=== PATIENT | female | born 1950 | race Caucasian/White ===

== ENCOUNTER → 2017-09-15 | Outpatient (CLI) | payer MEDICARE, BC ==
[2017-09-15 13:27] LABS: HGB 13.3 gm/dL (11.4-16.0); Hypochromasia Slight; MCH 30.2 pg (25.0-35.0); MCHC 31.7 g/dL (31.0-37.0); MCV 95.1 fL (80.0-100.0); Mean Platelet Volume 7.4; Platelet Count 297 k/uL (150-450); RBC 4.41 m/uL (3.80-5.40); RDW 12.9 % (11.5-15.5); WBC 6.9 k/uL (3.8-10.6)
[2017-09-15 13:45] LABS: Prothrombin Time 9.6 sec (9.0-12.0)
[2017-09-15 13:47] LABS: ALT 22 U/L (9-52); AST 21 U/L (14-36); Albumin 3.9 g/dL (3.5-5.0); Alkaline Phosphatase 78 U/L (38-126); Anion Gap 10 mmol/L; Blood Urea Nitrogen 15 mg/dL (7-17); Calcium 9.6 mg/dL (8.4-10.2); Carbon Dioxide 28 mmol/L (22-30); Chloride 103 mmol/L (98-107); Glucose 123 mg/dL (74-99); Potassium 4.7 mmol/L (3.5-5.1); Sodium 141 mmol/L (137-145); Total Bilirubin 0.7 mg/dL (0.2-1.3); Total Protein 6.6 g/dL (6.3-8.2)
== END | disposition home or self-care (01) ==
LOC: LABPAT 12:16
PROVIDERS: ATTEND Orthopaedic Surgery
DX: Z01.818 Encounter for other preprocedural examination (principal); Z01.812 Encounter for preprocedural laboratory examination; Z79.01 Long term (current) use of anticoagulants
CPT/HCPCS: 36415; 80053; 85027; 85610; 85730; 87070; 93005

== ENCOUNTER 2017-09-26 06:27 | Inpatient (IN) | payer MEDICARE, BC ==
[2017-09-20 14:31] VITALS: BMI 38.0
[~2017-09-26 06:27] MED LIST: ACETAMINOPHEN TAB 500 MG TAB PO ONE; DEXAMETHASONE SOD PHOSPHATE 10 MG/ML 1 ML VIAL IV ONE; MELOXICAM 7.5 MG TAB PO ONE; MIDAZOLAM 2 MG/2 ML VIAL IV PRN; MORPHINE SULFATE 4 MG/ML SYRINGE IV PRN; ONDANSETRON 4 MG/2 ML VIAL IVP ONE; ROPIVACAINE 246.25 MG, EPINEPHrine 0.5 MG, KETOROLAC 30 MG, cloNIDine HCL/PF 80 MCG, WA... MISCELLANE ONE; SCOPOLAMINE 1.5MG/72HR PATCH TRANSDERM ONE; TRANEXAMIC ACID 1,000 MG in SODIUM CHLORIDE 0.9% 50 ML IVPB ONE; ceFAZolin IN SWFI 2 GM/20 ML SYRINGE IVP ONE
[2017-09-26] MEDS: LACTATED RINGERS 1,000 ML IV SCH (07:10)
[2017-09-26] MEDS ORDERED: LIDOCAINE 1% 20 ML VIAL (10MG/ML) FOR IV START INTRADERMA ONE (07:11)
[2017-09-26] MEDS ORDERED: SODIUM CHLORIDE 0.9% 100 ML BAG ONE (08:45)
[2017-09-26] MEDS ORDERED: MIDAZOLAM 2 MG/2 ML VIAL ONE (08:45)
[2017-09-26] MEDS ORDERED: PROPOFOL 10 MG/ML 20 ML VIAL IV ONE (08:45)
[2017-09-26] MEDS ORDERED: PHENYLEPHRINE-0.9% NACL SYG 1 MG/10 ML SYRINGE ONE (08:45)
[2017-09-26] MEDS ORDERED: fentaNYL (PF) 50 MCG/ML 2 ML AMP ONE (08:45)
[2017-09-26] MEDS ORDERED: diphenhydrAMINE 50 MG/ML 1 ML VIAL ONE (08:45)
[2017-09-26] MEDS ORDERED: TRANEXAMIC ACID 1,000 MG/10 ML VIAL ONE (08:45)
[2017-09-26] MEDS ORDERED: hydrOXYzine PAMOATE 25 MG CAP PO PRN (08:50)
[2017-09-26] MEDS ORDERED: NALOXONE 0.4 MG/ML 1 ML VIAL IV PRN (08:50)
[2017-09-26] MEDS ORDERED: MORPHINE SULFATE 4 MG/ML SYRINGE IVP PRN ×4 (08:50)
[2017-09-26] MEDS ORDERED: DIAZEPAM 5 MG TAB PO PRN ×2 (08:50)
[2017-09-26] MEDS ORDERED: HYDROcodone/APAP 5-325MG 1 EACH TAB PO PRN (08:50)
[2017-09-26] MEDS ORDERED: BISACODYL 10 MG SUPP RECTAL PRN (08:50)
[2017-09-26] MEDS ORDERED: NA PHOS,M-B/NA PHOS,DI-BA 133 ML ENEMA RECTAL PRN (08:50)
[2017-09-26] MEDS ORDERED: ONDANSETRON 4 MG/2 ML VIAL IVP PRN (08:50)
[2017-09-26] MEDS ORDERED: MAGNESIUM HYDROXIDE 2,400 MG/10 ML CUP PO PRN (08:50)
[2017-09-26] MEDS ORDERED: ceFAZolin 3,000 MG in SODIUM CHLORIDE 0.9% IRRIGATIO 3,000 ML IRRIGATION ONE (08:54)
[2017-09-26] MEDS ORDERED: ROPIVACAINE 1,100 MG, SODIUM CHLORIDE 0.9% 330 ML MISCELLANE PRN ×2 (09:36)
--- NOTE | 2017-09-26 09:38 | P.ONQ ---
Anesthesiology Proc Note - PNB - Peripheral Nerve Block Performed Right Adductor Canal Indication: Acute Post-Operative Pain, Requested by physician (Dr Toby Nguyen ) Sedation Type: Sedate with meaningful contact maintained Preparation: Sterile Dressing Position: Supine Catheter: Indwelling Needle Types: Other (see comment) (Maryam) Needle Size: 100mm (4") Needle Gauge: 18 Technique: Ultrasound (23cc) Blood Aspirated: No Pain Paresthesia on Injection Noted: No Resistance on Injection: Normal Events: Uneventful and Well Tolerated
[2017-09-26] MEDS ORDERED: LACTATED RINGERS 1,000 ML IV ONE (09:40)
--- NOTE | 2017-09-26 10:08 | P.OP ---
Date of Procedure: 09/26/17 Preoperative Diagnosis: Severe osteoarthritis of the right knee Postoperative Diagnosis: Severe osteoarthritis of the right knee Procedure(s) Performed: Right total knee arthroplasty Implants: Veliz and Nephew Oxinium femoral component size 4, right Veliz & Nephew Dilcia II right nonporous tibial baseplate size 4 Veliz [employer] Nephew size 11 mm Legion XLPE dished articular insert, size 3-4 Veliz [employer]hew Dilcia II resurfacing patellar component, 32 mm All components were cemented using Carole bone cement.. The articulation is Oxinium on polyethylene. Anesthesia: spinal Surgeon: Toby Nguyen Tech Ed/Woodshop Teacher #1: Nona Almonte Estimated Blood Loss (ml): 50 Pathology: other (Bone and cartilage) Condition: stable Disposition: PACU Indications for Procedure: After failure of conservative treatment we discussed the surgical and nonsurgical treatment options at length. Patient wishes to proceed with a total knee arthroplasty. Complications specific to this procedure were discussed at length, including but not limited to infection, bleeding, stiffness , and nerve injury. Patient is aware of all these complications and informed consent was obtained Operative Findings: The operative findings are consistent with severe osteoarthritis of the right knee Description of Procedure: Patient was seen in the preoperative area consent was reviewed and operative site was marked with a skin marker. An adductor canal pain catheter was placed by anesthesia in the preoperative area. Patient was then brought to the operating room and given preoperative antibiotics intravenously. A spinal anesthetic was administered by the anesthesia department. A tourniquet was placed on the upper thigh and the lower extremity was prepped and draped in usual sterile fashion. A gram of transexamic acid was given. A universal timeout was then performed which confirmed the patient's name, surgical site, ALLERGIES, and consent. The lower extremity was then exsanguinated and tourniquet was inflated to 250 mmHg. A standard and anterior midline approach to the knee was performed. The skin and subcutaneous tissue was dissected down to the patellar tendon. A medial parapatellar arthrotomy was then performed. The knee was then extended, the patellar was everted, and the knee was again flexed. Anterior horns of both menisci were excised, and a release was performed to the posterior medial aspect of the knee. On gross visual inspection, there was complete loss of articular cartilage in the medial and patellofemoral joint spaces. There was also significant cartilage damage in the lateral compartment. There were multiple periarticular osteophytes which were then removed with a Ronguer. The femoral canal was then opened with the appropriate drill, and the intramedullary femoral cutting guide was then placed and set for 4 of valgus. The distal femoral cutting block was then pinned in place, and the distal femur was then cut. The cutting block was then removed and the cut was checked for flatness. Next, the sizing guide was then placed and set for 3 external rotation based off of the epicondylar axis and Whitesides line. After the femur was sized, the appropriate 4-in-1 cutting block was then pinned in place. The anterior condyles were cut without notching. The posterior and chamfer cuts were performed while protecting the collateral ligaments. The cutting block was then removed, and the femoral canal was plugged with autologous bone. Attention was then directed to the tibia. The remaining ACL was removed with a Ronguer, and the tibia was then gently subluxed forward with a large bent knee retractor. Any remaining menisci was excised. The posterior lateral corner was cauterized in order to cauterize the lateral geniculate artery. The extra medullary tibial cutting guide was then placed, set for the appropriate rotation , slope, and depth of resection. The proximal tibia cutting guide was then pinned in place. Proximal tibia was then cut and sized. Next trials were then placed with the appropriate-sized insert. The knee was able to fully extend and flex to 130 and was stable throughout all range of motion. The knee was then extended, patella everted. Patella was then measured, and then using an osteotomy guide, the patella was cut at the appropriate level. The patella was then measured and drilled and the patella trial was then placed. The knee was then taken through range of motion with the patella trial and the patella tracked normally. The knee was then extended patella trial was then removed and the patella was everted. Knee was then flexed and lug holes were drilled through the femoral trial and the femoral trial was then removed. The tibial was then exposed, and the tibial broach guide was then pinned in place after it was set for the appropriate rotation to allow for the most coverage without overhang. The tibia was then reamed and broached. The cut surfaces of bone were then irrigated with pulsatile lavage. The posterior structures were injected with the ropivacaine solution. The knee was also irrigated with Irrisept solution. The components were then opened, the cement was mixed, and the components were then cemented in place. The cement was allowed to harden with the knee in full extension. While the cement was hardening, the remaining soft tissues were then injected with a ropivacaine solution, which consisted of 246.25 mg of ropivacaine, 0.5 mg of epinephrine, 30 mg of Toradol, 80 g of clonidine, and 48.45 mL of sterile water, for a total of 100 mL of fluid injected. After the cemented hardened. The tourniquet was released, and hemostasis was obtained. A second gram of transexamic acid was given. The knee was again irrigated. The knee was again taken through range of motion and found to be stable throughout all range of motion of 0-130 , and the patella tracked normally. The fascia was then closed with #2 strata fix suture. The subcutaneous tissue was closed with 3-0 Vicryl and 3-0 strata fix. Dermabond glue was used for the skin and placed with the knee in flexion. The patient was placed in a sterile silver dressing. Patient was then transferred to recovery room in stable condition. The assistant county engineer LISSETH Whitehead was required due the complexity surgery and the need for a skilled customer care assistant. She assisted in positioning, draping, retraction, and closure of the wound.
[2017-09-26] MEDS ORDERED: MEPERIDINE 50 MG/ML SYRINGE IVP ONE (10:38)
--- NOTE | 2017-09-26 11:08 | XR ---
EXAMINATION TYPE: XR knee limited RT DATE OF EXAM: 09/26/2017 COMPARISON: 2 views HISTORY: 67-year-old female evaluation for postoperative abnormality and alignment FINDINGS: Images show placement of right total knee arthroplasty. Both distal femoral and proximal tibial compo nents of the prosthesis appear well seated without periprosthetic fracture. Alignment grossly anatomi c. Soft tissue and intra-articular air with anterior soft tissue swelling and small knee joint effusi on compatible with recent operation. IMPRESSION: Uncomplicated postoperative appearance right total knee arthroplasty.
[2017-09-26] MEDS ORDERED: BUDESONIDE 1 MG/2 ML NEBU INHALATION PRN (12:36)
[2017-09-26] MEDS ORDERED: ALBUTEROL NEBULIZED 2.5 MG/3 ML INHALATION PRN (12:36)
[2017-09-26] MEDS: SODIUM CHLORIDE 0.9% 1,000 ML IV SCH (14:09)
--- NOTE | 2017-09-26 14:39 | P.CONS ---
History of Present Illness - Reason for Consult Consult date: 09/26/17 Medical management - History of Present Illness This is a 67-year-old female patient of Dr. Lake with past medical history of mild intermittent asthma, gastroesophageal reflux disease, hyperlipidemia, hypertension, osteoarthritis of bilateral knees, recently treated for urinary tract infection and completed course of Macrobid. Patient has been admitted under the care of Dr. Dr. Nguyen status post right total knee arthroplasty. Patient has had no postop palpitations. She denies any chest pain, shortness of breath, nausea vomiting. Her vital signs have been stable. Patient will be resumed on her home medications with parameters for Metoprolol. Patient denies history of NV or DVT/PE. Her last bowel movement was this morning. She denies any blood in her stool. Review of Systems All systems: negative Constitutional: Denies anorexia, Denies chills, Denies fatigue, Denies fever, Denies lethargy, Denies malaise, Denies poor appetite, Denies sweats, Denies weight loss Eyes: denies blurred vision, denies pain Ears, nose, mouth and throat: Denies dental pain, Denies headache, Denies mouth pain, Denies sore throat Cardiovascular: Denies chest pain, Denies decreased exercise tolerance, Denies dyspnea on exertion, Denies edema, Denies leg edema, Denies lightheadedness, Denies shortness of breath, Denies syncope Respiratory: Denies cough, Denies cough with sputum, Denies dyspnea, Denies excessive sputum, Denies hemoptysis, Denies home oxygen, Denies wheezing Gastrointestinal: Denies abdominal pain, Denies diarrhea, Denies nausea, Denies vomiting Genitourinary: Denies dysuria, Denies hematuria Musculoskeletal: Denies myalgias Integumentary: Denies pruritus, Denies rash Neurological: Denies numbness, Denies weakness Psychiatric: Denies anxiety, Denies depression Endocrine: Denies fatigue, Denies weight change Past Medical History Past Medical History: Asthma, GERD/Reflux, Hyperlipidemia, Hypertension, Osteoarthritis (OA) Additional Past Medical History / Comment(s): STATES HEART SKIPS A BEAT., ARTHRITIS ANURAG KNEES., VARICOSE VEINS. History of Any Multi-Drug Resistant Organisms: None Reported Past Surgical History: Hysterectomy, Orthopedic Surgery, Tubal Ligation Additional Past Surgical History / Comment(s): rt shoulder rotator cuff, anurag bunionectomy and hammertoe, kidney stone removal, right total knee arthroplasty Past Anesthesia/Blood Transfusion Reactions: Postoperative Nausea & Vomiting ( PONV) Past Psychological History: Anxiety Smoking Status: Never smoker Past Alcohol Use History: None Reported Additional Past Alcohol Use History / Comment(s): She is a lifelong nonsmoker. She denies any medical marijuana, marijuana, street drug use. She lives at home with her . Past Drug Use History: None Reported - Past Family History Sister(s) Family Medical History: Cancer Additional Family Medical History / Comment(s): UTERINE CANCER Father Family Medical History: Cancer Additional Family Medical History / Comment(s): Father from liver cancer. Mother Additional Family Medical History / Comment(s): Mother from heart failure with history of Alzheimer's dementia. Son(s) Additional Family Medical History / Comment(s): Patient is to [facility] with no major medical problem. Medications and Allergies Home Medications Medication Instructions Recorded Confirmed Type Albuterol Inhaler [Ventolin Hfa 2 puff INHALATION RT-Q6H PRN 01/26/16 09/26/17 History Inhaler] Aspirin EC [Ecotrin] 81 mg PO HS 01/26/16 09/26/17 History Beclomethasone Dipropionate [Qvar 2 puff INHALATION RT-DAILY PRN 01/26/16 History 80 mcg] Cholecalciferol [Vitamin D3] 2,000 unit PO DAILY 01/26/16 09/26/17 History Escitalopram [Lexapro] 10 mg PO DAILY 01/26/16 09/26/17 History Esomeprazole Magnesium [NexIUM] 40 mg PO DAILY 01/26/16 09/26/17 History Fluticasone Nasal [place] [Flonase 2 spr EA NOSTRIL HS 01/26/16 09/26/17 History Nasal [place]] Montelukast [Singulair] 10 mg PO HS 01/26/16 09/26/17 History Pravastatin Sodium [Pravachol] 10 mg PO HS 01/26/16 09/26/17 History Metoprolol Succinate [Toprol XL] 50 mg PO DAILY 09/20/17 09/26/17 History Nitrofurantoin Monohyd/M-Cryst 100 mg PO Q12HR 09/26/17 09/26/17 History [Macrobid] Allergies Allergy/AdvReac Type Severity Reaction Status Date / Time No Known Allergies Allergy Verified 09/26/17 09:18 Physical Exam Vitals: Vital Signs Temp Pulse Resp BP Pulse Ox 09/26/17 11:47 89 16 135/62 96 09/26/17 11:32 87 16 140/64 97 09/26/17 11:16 87 16 137/68 96 09/26/17 11:01 87 16 134/65 96 09/26/17 10:46 96 16 136/65 95 09/26/17 10:30 98 16 137/75 95 09/26/17 10:28 98.7 F 98 18 133/74 93 L 09/26/17 07:02 97.7 F 88 16 189/78 97 Intake and Output 09/25/17 09/26/17 09/26/17 22:59 06:59 14:59 Intake Total 1301 Output Total 50 Balance 1251 Intake: IV 1301 Output: Estimated Blood Loss 50 Other: Weight 97.522 kg Patient Weight 09/27/17 06:59 Weight 97.522 kg Gen: This is a 67-year-old female. She is sitting up in bed appears to be comfortable and in no acute distress. HEENT: Head is atraumatic, normocephalic. Pupils equal, round. Sclerae is anicteric. NECK: Supple. No JVD. No lymphadenopathy. No thyromegaly. LUNGS: Clear to auscultation. No wheezes or rhonchi. No intercostal retractions. HEART: Regular rate and rhythm. No murmur. ABDOMEN: Soft. Bowel sounds are present. No masses. No tenderness. EXTREMITIES: No pedal edema. No calf tenderness. Dressing in place to the right knee. NEUROLOGICAL: Patient is awake, alert and oriented x3. Cranial nerves 2 through 12 are grossly intact. Assessment and Plan Plan: 1. Osteoarthritis of the bilateral knees status post right total knee arthroplasty. Continue current pain management. PT and OT per orthopedics. Senna spirometry to reduce incidence of atelectasis and hospital-acquired pneumonia. Patient is on aspirin for DVT prophylaxis. 2. Hypertension. Continue Toprol-XL 50 mg daily. 3. Hyperlipidemia. Continue pravastatin 10 mg at bedtime. 4. Mild intermittent asthma, stable without exacerbation. Continue albuterol inhaler, Qvar or equivalent, Flonase, Singulair. 5. Generalized anxiety disorder. Continue Lexapro. 6. UTI. Completed treatment yesterday. Bactrim to be discontinued. 7. GI prophylaxis. Pepcid. Discharge plan: To be determined Impression and plan of care have been directed as dictated by the signing physician. Annmarie Giron nurse practitioner acting as scribe for signing physician.
[2017-09-26] MEDS: ceFAZolin IN SWFI 2 GM/20 ML SYRINGE IVP SCH ×2 (15:43→23:22)
[2017-09-26] MEDS: ASPIRIN 325 MG TAB PO SCH (20:05)
[2017-09-26] MEDS ORDERED: MONTELUKAST 10 MG TAB PO SCH (21:00)
[2017-09-26] MEDS ORDERED: NITROFURANTOIN MONOHYD/M-CRYST 100 MG CAP PO SCH (21:00)
[2017-09-26] MEDS ORDERED: SENNOSIDES-DOCUSATE SODIUM 1 EACH TAB PO SCH (21:00)
[2017-09-26] MEDS ORDERED: FLUTICASONE 50MCG/SPRAY NASAL 16GM EA NOSTRIL SCH (21:00)
[2017-09-26] MEDS ORDERED: PRAVASTATIN SODIUM 20 MG TAB PO SCH (21:00)
[2017-09-26] MEDS: HYDROcodone/APAP 5-325MG 1 EACH TAB PO PRN (23:33)
[2017-09-27] MEDS: SODIUM CHLORIDE 0.9% 1,000 ML IV SCH (05:03)
[2017-09-27] MEDS: LACTATED RINGERS 1,000 ML IV SCH (05:04)
[2017-09-27 08:06] VITALS: BP 122/72; PULSE 64; RESP 20; TEMP 97.7
[2017-09-27 08:07] LABS: Basophils % (A) 0 %; Eosinophils % (A) 0 %; HCT 32.5 % (34.0-46.0); Lymphocytes # (A) 1.3 k/uL (1.0-4.8); Lymphocytes % (A) 13 %; MCH 29.8 pg (25.0-35.0); MCHC 33.6 g/dL (31.0-37.0); Mean Platelet Volume 7.6; Monocytes # (A) 0.7 k/uL (0-1.0); Monocytes % (A) 7 %; Neutrophils # (A) 8.1 k/uL (1.3-7.7); Neutrophils % (A) 79 %; Platelet Count 274 k/uL (150-450); RBC 3.66 m/uL (3.80-5.40); WBC 10.3 k/uL (3.8-10.6)
[2017-09-27 08:10] LABS: HGB 10.9 gm/dL (11.4-16.0); MCV 88.8 fL (80.0-100.0)
[2017-09-27] MEDS: ASPIRIN 325 MG TAB PO SCH (08:36)
--- NOTE | 2017-09-27 08:53 | P.DS ---
Providers Date of admission: 09/26/17 06:27 Expected date of discharge: 09/27/17 Attending physician: Toby Nguyen Consults: 09/26/17 08:50 Consult Physician Routine Consulting Provider: Jaz Rachel Consult Reason/Comments: medical management Do you want consulting provider notified?: Yes Primary care physician: Issac Hamilton Kut - Discharge Diagnosis(es) (1) Primary osteoarthritis of right knee Current Visit: Yes Status: Acute (2) S/P total knee arthroplasty Current Visit: Yes Status: Acute Hospital Course: This is a 67-year-old female with known history of degenerative arthritis of the right knee. The patient presents for evaluation. After discussion and consideration patient elects to proceed with total knee arthroplasty. The patient is seen preoperatively by Dr. Nguyen and medically cleared for surgery by their primary care physician. Patient is admitted to [facility] on 09/26/2017 for total knee arthroplasty. The procedures performed without complication or sequelae. The patient is doing well postoperatively. Labs and vital signs are stable on day of discharge. On day of discharge patient's knee incision is healing well. There is minimal erythema. There is no drainage noted at this time. There is minimal soft tissue swelling to the knee. Patient has full foot and ankle motion without difficulty or pain. Neurovascular status to the right lower extremity is intact. Patient is discharged home in good condition. Please see med rec for accurate list of home medications. Plan - Discharge Summary Discharge Rx Participant: Yes New Discharge Prescriptions: New Aspirin 325 mg PO BID #60 tab HYDROcodone/APAP 5-325MG [Wise 5-325] 1 - 2 tab PO Q4-6H PRN #90 tab PRN Reason: Pain Sennosides [Senokot] 1 tab PO BID #60 tablet No Action Fluticasone Nasal [place] [Flonase Nasal [place]] 2 spr EA NOSTRIL HS Albuterol Inhaler [Ventolin Hfa Inhaler] 2 puff INHALATION RT-Q6H PRN PRN Reason: Shortness Of Breath Cholecalciferol [Vitamin D3] 2,000 unit PO DAILY Aspirin EC [Ecotrin] 81 mg PO HS Esomeprazole Magnesium [NexIUM] 40 mg PO DAILY Escitalopram [Lexapro] 10 mg PO DAILY Pravastatin Sodium [Pravachol] 10 mg PO HS Montelukast [Singulair] 10 mg PO HS Beclomethasone Dipropionate [Qvar 80 mcg] 2 puff INHALATION RT-DAILY PRN PRN Reason: Shortness Of Breath Metoprolol Succinate [Toprol XL] 50 mg PO DAILY Nitrofurantoin Monohyd/M-Cryst [Macrobid] 100 mg PO Q12HR Discharge Medication List Albuterol Inhaler [Ventolin Hfa Inhaler] 2 puff INHALATION RT-Q6H PRN 01/26/16 [ History] Aspirin EC [Ecotrin] 81 mg PO HS 01/26/16 [History] Beclomethasone Dipropionate [Qvar 80 mcg] 2 puff INHALATION RT-DAILY PRN [History] Cholecalciferol [Vitamin D3] 2,000 unit PO DAILY 01/26/16 [History] Escitalopram [Lexapro] 10 mg PO DAILY 01/26/16 [History] Esomeprazole Magnesium [NexIUM] 40 mg PO DAILY 01/26/16 [History] Fluticasone Nasal [place] [Flonase Nasal [place]] 2 spr EA NOSTRIL HS 01/26/16 [ History] Montelukast [Singulair] 10 mg PO HS 01/26/16 [History] Pravastatin Sodium [Pravachol] 10 mg PO HS 01/26/16 [History] Metoprolol Succinate [Toprol XL] 50 mg PO DAILY 09/20/17 [History] Nitrofurantoin Monohyd/M-Cryst [Macrobid] 100 mg PO Q12HR 09/26/17 [History] Aspirin 325 mg PO BID #60 tab 09/27/17 [Rx] HYDROcodone/APAP 5-325MG [Wise 5-325] 1 - 2 tab PO Q4-6H PRN #90 tab 09/27/17 [ Rx] Sennosides [Senokot] 1 tab PO BID #60 tablet 09/27/17 [Rx] Follow up Appointment(s)/Referral(s): Toby Nguyen DO [Doctor of Osteopathic Medicine] - 2 Weeks Ambulatory/Diagnostic Orders: Continuous Passive Motion (CPM) Machine [DME.AMB1] Time Frame: 3 Weeks, Location : Determined By Patient Activity/Diet/Wound Care/Special Instructions: Weightbearing as tolerated with a walker CPM 5-6h daily Leave dressing intact. May be removed by home care nurse in 10 days, 10/06/2017. May shower with dressing on. [facility] with questions or concerns [phone] Discharge Disposition: HOME WITH HOME HEALTH SERVICES
[2017-09-27] MEDS ORDERED: ESCITALOPRAM 10 MG TAB PO SCH (09:00)
[2017-09-27] MEDS ORDERED: FAMOTIDINE 20 MG TAB PO SCH (09:00)
[2017-09-27] MEDS ORDERED: MELOXICAM 7.5 MG TAB PO SCH (09:00)
[2017-09-27] MEDS ORDERED: METOPROLOL SUCCINATE (ER) 50 MG TAB.ER.24H PO SCH (09:00)
[2017-09-27] MEDS: HYDROcodone/APAP 5-325MG 1 EACH TAB PO PRN (09:15)
--- NOTE | 2017-09-27 09:23 | P.PN ---
Progress Note - Text The patient is status post right adductor canal catheter placement. The catheter was placed for postoperative pain control, status post total right arthroplasty. Ropivacaine 0.2% is infusing at 8 mLs per hour. The patient has no complaints of right lower extremity numbness or weakness. Patient's VAS score is 0 -10. Assessment: Patient's adductor canal catheter is in place and working appropriately. Plan: continue infusion and adjust it as needed.
[2017-09-27] MEDS ORDERED: CHOLECALCIFEROL 1,000 UNIT TAB PO SCH (12:00)
== END 2017-09-27 14:31 | disposition home health service (06) | DRG 470 ==
LOC: 2ORMAIN 06:27 → 3SUR 11:42
PROVIDERS: ADMIT Orthopaedic Surgery; ATTEND Orthopaedic Surgery
PROC: 0SRC069 Replacement of Right Knee Joint with Oxidized Zirconium on Polyethylene Synthetic Substitute, Cemented, Open Approach (ICD-10-PCS; principal; 2017-09-26 08:15)
DX: M17.0 Bilateral primary osteoarthritis of knee (principal); E78.00 Pure hypercholesterolemia, unspecified; E78.5 Hyperlipidemia, unspecified; I10 Essential (primary) hypertension; J45.20 Mild intermittent asthma, uncomplicated; K21.9 Gastro-esophageal reflux disease without esophagitis; I83.90 Asymptomatic varicose veins of unspecified lower extremity; F41.1 Generalized anxiety disorder; Z90.710 Acquired absence of both cervix and uterus; Z79.82 Long term (current) use of aspirin; Z79.899 Other long term (current) drug therapy; Z87.440 Personal history of urinary (tract) infections; Z82.49 Family history of ischemic heart disease and other diseases of the circulatory system
CPT/HCPCS: 85025; 88300

== ENCOUNTER → 2023-07-10 | Outpatient (CLI) | payer MEDICARE ==
[2023-07-10 13:31] LABS: INR 0.9 (<1.2); Partial Thromboplastin Time 24.8 sec (22.0-30.0); Prothrombin Time 10.2 sec (10.0-12.5)
[2023-07-10 19:47] LABS: HCT 42.8 % (37.2-46.3); HGB 13.5 g/dL (12.0-15.0); MCH 29.9 pg (27.0-32.0); MCHC 31.5 g/dL (32.0-37.0); MCV 94.9 FL (80.0-97.0); Mean Platelet Volume 11.3 FL (9.5-12.2); NRBC Per 100 WBC 0 X 10*3/uL (0.00-0.01); Platelet Count 301 X 10*3/uL (140-440); RBC 4.51 X 10*6/uL (4.10-5.20); RDW 12.8 % (11.5-14.5); WBC 7.01 X 10*3/uL (4.50-10.00)
[2023-07-10 20:28] LABS: ALT 13 U/L (8-44); AST 16 U/L (13-35); Albumin 4.1 g/dL (3.8-4.9); Albumin/Globulin Ratio 1.71 Ratio (1.60-3.17); Alkaline Phosphatase 61 U/L (41-126); Blood Urea Nitrogen 16.4 mg/dL (9.0-27.0); Calcium 9.7 mg/dL (8.7-10.3); Carbon Dioxide 22.1 mmol/L (21.6-31.8); Chloride 108 mmol/L (96-109); Globulin 2.4 g/dL (1.6-3.3); Glucose 97 mg/dL (70-110); Potassium 4.1 mmol/L (3.5-5.5); Sodium 142 mmol/L (135-145); Total Bilirubin 0.7 mg/dL (0.3-1.2); Total Protein 6.5 g/dL (6.2-8.2)
== END | disposition home or self-care (01) ==
LOC: LABPAT 12:37
PROVIDERS: ATTEND Orthopaedic Surgery
DX: Z01.818 Encounter for other preprocedural examination (principal); M17.12 Unilateral primary osteoarthritis, left knee; R94.31 Abnormal electrocardiogram [ECG] [EKG]
CPT/HCPCS: 80053; 85027; 85610; 85730; 87070; 93005

== ENCOUNTER 2023-08-22 23:01 | Emergency (ER) | payer MEDICARE ==
[2023-08-22] MEDS ORDERED: LIDOCAINE 1% INJ 10MG/ML (20 ML MDV) SQ ONE (23:43)
--- NOTE | 2023-08-22 23:43 | ED ---
General Adult HPI - General Stated complaint: dog bite Time Seen by Provider: 08/22/23 23:43 - History of Present Illness Initial comments: 73-year-old female presenting with chief complaint of dog bite. Patient states that she was playing ball with her dog when the dog bit her while trying to get the ball back. She has a 4 cm flap laceration to the left hand. She also has a puncture wound to the left hand and the left rees. Her last tetanus shot was 2 years ago. Dog's vaccinations are up-to-date. - Related Data Home Medications Medication Instructions Recorded Confirmed Albuterol Inhaler [Ventolin Hfa 2 puff INHALATION RT-Q6H PRN 01/26/16 09/26/17 Inhaler] Beclomethasone Dipropionate [Qvar 2 puff INHALATION RT-DAILY PRN 01/26/16 09/26/17 80 mcg] Cholecalciferol [Vitamin D3] 2,000 unit PO DAILY 01/26/16 09/26/17 Escitalopram [Lexapro] 10 mg PO DAILY 01/26/16 09/26/17 Esomeprazole Magnesium [NexIUM] 40 mg PO DAILY 01/26/16 09/26/17 Fluticasone Nasal [place] [Flonase 2 spr EA NOSTRIL HS 01/26/16 09/26/17 Nasal [place]] Montelukast [Singulair] 10 mg PO HS 01/26/16 09/26/17 Pravastatin Sodium [Pravachol] 10 mg PO HS 01/26/16 09/26/17 Metoprolol Succinate [Toprol XL] 50 mg PO DAILY 09/20/17 09/26/17 Nitrofurantoin Monohyd/M-Cryst 100 mg PO Q12HR 09/26/17 09/26/17 [Macrobid] Previous Rx's Medication Instructions Recorded Aspirin 325 mg PO BID #60 tab 09/27/17 HYDROcodone/APAP 5-325MG [[place] 1 - 2 tab PO Q4-6H PRN #90 tab 09/27/17 5-325] Sennosides [Senokot] 1 tab PO BID #60 tablet 09/27/17 Amoxic-Pot Clav 875-125Mg 1 tab PO BID 7 Days #14 tab 08/23/23 [Augmentin 875-125] Allergies Allergy/AdvReac Type Severity Reaction Status Date / Time NSAIDS (Non-Steroidal Allergy Swelling Verified 08/22/23 23:40 Anti-Inflamma Review of Systems ROS Statement: Those systems with pertinent positive or pertinent negative responses have been documented in the HPI. ROS Other: All systems not noted in ROS Statement are negative. Past Medical History Past Medical History: Asthma, GERD/Reflux, Hyperlipidemia, Hypertension, Osteoarthritis (OA) Additional Past Medical History / Comment(s): STATES HEART SKIPS A BEAT., ARTHRITIS ANURAG KNEES., VARICOSE VEINS. History of Any Multi-Drug Resistant Organisms: None Reported Past Surgical History: Hysterectomy, Orthopedic Surgery, Tubal Ligation Additional Past Surgical History / Comment(s): rt shoulder rotator cuff, anurag bunionectomy and hammertoe, kidney stone removal, right total knee arthroplasty Past Anesthesia/Blood Transfusion Reactions: Postoperative Nausea & Vomiting (PONV) Past Psychological History: Anxiety Past Alcohol Use History: None Reported Additional Past Alcohol Use History / Comment(s): She is a lifelong nonsmoker. She denies any medical marijuana, marijuana, street drug use. She lives at home with her . Past Drug Use History: None Reported - Past Family History Sister(s) Family Medical History: Cancer Additional Family Medical History / Comment(s): UTERINE CANCER Father Family Medical History: Cancer Additional Family Medical History / Comment(s): Father from liver cancer. Mother Additional Family Medical History / Comment(s): Mother from heart failure with history of Alzheimer's dementia. Son(s) Additional Family Medical History / Comment(s): Patient is to sounds with no major medical problem. General Exam Limitations: no limitations General appearance: alert, in no apparent distress Head exam: Present: atraumatic, normocephalic Eye exam: Present: normal appearance, EOMI Neck exam: Present: normal inspection Respiratory exam: Absent: respiratory distress Cardiovascular Exam: Present: regular rate Left Hand Wrist exam: Present: full ROM, laceration (4 cm flap laceration to the dorsum of the hand). Absent: tenderness, swelling Vascular: Absent: vascular compromise Left Lower Leg exam: Present: full ROM, abrasion. Absent: tenderness, swelling Neurological exam: Present: alert, oriented X3 Psychiatric exam: Present: normal affect, normal mood Expanded Type of lesion: Present: laceration (4 cm flap laceration to the left hand. There are also puncture wounds to the left hand and left rees.) Course Vital Signs 08/22/23 08/23/23 08/23/23 23:40 00:30 02:18 Temperature 97.9 F Pulse Rate 82 74 80 Respiratory 18 18 18 Rate Blood Pressure 137/80 137/79 136/74 O2 Sat by Pulse 97 96 100 Oximetry Procedures - Laceration Laceration #1 Consent Obtained: verbal consent Indication: laceration Site: hand Size (cm): 4 Description: flap Depth: simple, single layer Anesthetic Used: lidocaine 1%, without epi Anesthesia Technique: local infiltration Pre-repair: wound explored, irrigated extensively Type of Sutures: nylon Size of Sutures: 4-0 Number of Sutures: 2 Technique: simple, interrupted Patient Tolerated Procedure: well Medical Decision Making - Medical Decision Making Was pt. sent in by a medical professional or institution (Dr. PA, REGROOVER, urgent care, hospital, or assisted...) When possible be specific @ -No Did you speak to anyone other than the patient for history (EMS, parent, family, police, friend...)? What history was obtained from this source @ -No Did you review nursing and triage notes (agree or disagree)? Why? @ -I reviewed the nursing and triage notes, patient tells me that her last tetanus shot was 2 years ago. Were old charts reviewed (outside hosp., previous admission, EMS record, old EKG, old radiological studies, urgent care reports/EKG's, assisted records)? Report findings @ -No old charts were reviewed Differential Diagnosis (chest pain, altered mental status, abdominal pain women, abdominal pain men, vaginal bleeding, weakness, fever, dyspnea, syncope, headache, dizziness, GI bleed, back pain, seizure, CVA, palpatations, mental health, musculoskeletal)? @ -Not applicable EKG interpreted by me (3pts min.). @ -As above X-rays interpreted by me (1pt min.). @ -None done CT interpreted by me (1pt min.). @ -None done U/S interpreted by me (1pt. min.). @ -None done What testing was considered but not performed or refused? (CT, X-rays, U/S, labs)? Why? @ -None What meds were considered but not given or refused? Why? @ -None Did you discuss the management of the patient with other professionals (professionals i.e. Dr., PA, REGROOVER, lab, RT, psych nurse, social worker school, social work program coordinator, teacher, radiological defense officer, child support case officer)? Give summary @ -No Was smoking cessation discussed for >3mins.? @ -No Was critical care preformed (if so, how long)? @ -No Were there social determinants of health that impacted care today? How? (Homelessness, low income, unemployed, alcoholism, drug addiction, transportation, low edu. Level, literacy, decrease access to med. care, senior living, rehab)? @ -No Was there de-escalation of care discussed even if they declined (Discuss DNR or withdrawal of care, Hospice)? DNR status @ -No What co-morbidities impacted this encounter? (DM, HTN, Smoking, COPD, CAD, Cancer, CVA, ARF, Chemo, Hep., AIDS, mental health diagnosis, sleep apnea, morbid obesity)? @ -None Was patient admitted / discharged? Hospital course, mention meds given and route, prescriptions, significant lab abnormalities, going to OR and other pertinent info. @ -73-year-old female presenting with chief complaint of dog bite. Patient has a 4 cm flap laceration to the left hand. She also has puncture wounds to the left hand and left rees. Laceration required loose approximation due to the size and location. Wound was irrigated extensively and 2 simple interrupted sutures are applied. Patient is started on Augmentin. She is educated on wound care and signs of infection. Follow-up with PCP. Report back to ER with any new or worsening symptoms. Discussed return parameters and answered all ques tions. Patient conveyed verbal understanding and agreed to the plan. I discussed this case in detail with my attending Dr. Gallardo Undiagnosed new problem with uncertain prognosis? @ -No Drug Therapy requiring intensive monitoring for toxicity (Heparin, Nitro, Insulin, Cardizem)? @ -No Were any procedures done? @ -No Diagnosis/symptom? @ -Dog bite Acute, or Chronic, or Acute on Chronic? @ -Acute Uncomplicated (without systemic symptoms) or Complicated (systemic symptoms)? @ -Uncomplicated Side effects of treatment? @ -No Exacerbation, Progression, or Severe Exacerbation? @ -No Poses a threat to life or bodily function? How? (Chest pain, [place], [place], pneumonia, PE, COPD, DKA, ARF, appy, cholecystitis, CVA, Diverticulitis, Homicidal, Suicidal, threat to staff... and all critical care pts) @ -No Disposition Clinical Impression: Dog bite Disposition: HOME SELF-CARE Condition: Good Instructions (If sedation given, give patient instructions): Animal Bite (ED) Additional Instructions: Follow-up with PCP. Report back to ER with any new or worsening symptoms. Take medication as prescribed. Sutures may be removed in 10 to 14 days. Monitor for signs of infection, including but not limited to redness, swelling, warmth, tenderness, discharge. Wash daily with soap and water. Prescriptions: Amoxic-Pot Clav 875-125Mg [Augmentin 875-125] 1 tab PO BID 7 Days #14 tab Is patient prescribed a controlled substance at d/c from ED?: No Referrals: [facility] [Primary Care Provider] - 1-2 days Time of Disposition: 01:32
[2023-08-23 00:10] VITALS: RESP 18; TEMP 97.9
[2023-08-23] MEDS ORDERED: AMOXIC-POT CLAV 875-125MG 1 EACH TAB PO STA (01:32)
[2023-08-23 03:03] VITALS: BP 136/74; PULSE 80
== END 2023-08-23 02:19 | disposition home or self-care (01) ==
LOC: EC 23:01
DX: S61.412A Laceration without foreign body of left hand, initial encounter (principal); S61.452A Open bite of left hand, initial encounter; E78.5 Hyperlipidemia, unspecified; I10 Essential (primary) hypertension; J45.909 Unspecified asthma, uncomplicated; K21.9 Gastro-esophageal reflux disease without esophagitis; F41.9 Anxiety disorder, unspecified; Z79.899 Other long term (current) drug therapy; Z79.51 Long term (current) use of inhaled steroids; Z88.6 Allergy status to analgesic agent; W54.0XXA Bitten by dog, initial encounter
CPT/HCPCS: 12002; 99283; J2001

== ENCOUNTER → 2023-09-01 | Outpatient (CLI) | payer MEDICARE ==
[2023-09-01 13:48] LABS: Partial Thromboplastin Time 24.3 sec (22.0-30.0); Prothrombin Time 10.5 sec (10.0-12.5)
[2023-09-01 18:34] LABS: HCT 41.3 % (37.2-46.3); MCH 29.5 pg (27.0-32.0); MCHC 31.5 g/dL (32.0-37.0); MCV 93.7 FL (80.0-97.0); Mean Platelet Volume 10.8 FL (9.5-12.2); NRBC Per 100 WBC 0 X 10*3/uL (0.00-0.01); Platelet Count 276 X 10*3/uL (140-440); RBC 4.41 X 10*6/uL (4.10-5.20); RDW 12.9 % (11.5-14.5); WBC 7.54 X 10*3/uL (4.50-10.00)
[2023-09-01 18:52] LABS: ALT 21 U/L (8-44); AST 18 U/L (13-35); Albumin 4.1 g/dL (3.8-4.9); Albumin/Globulin Ratio 1.78 Ratio (1.60-3.17); Alkaline Phosphatase 62 U/L (41-126); BUN/Creat Ratio 20.57 Ratio (12.00-20.00); Blood Urea Nitrogen 14.4 mg/dL (9.0-27.0); Calcium 9.9 mg/dL (8.7-10.3); Carbon Dioxide 25.2 mmol/L (21.6-31.8); Chloride 107 mmol/L (96-109); Globulin 2.3 g/dL (1.6-3.3); Glucose 98 mg/dL (70-110); Potassium 4.6 mmol/L (3.5-5.5); Sodium 143 mmol/L (135-145); Total Bilirubin 1.1 mg/dL (0.3-1.2); Total Protein 6.4 g/dL (6.2-8.2)
== END | disposition home or self-care (01) ==
LOC: LABPAT 12:36
PROVIDERS: ATTEND Orthopaedic Surgery
DX: Z01.812 Encounter for preprocedural laboratory examination (principal); M17.12 Unilateral primary osteoarthritis, left knee; Z22.322 Carrier or suspected carrier of Methicillin resistant Staphylococcus aureus
CPT/HCPCS: 36415; 80053; 85027; 85610; 85730; 87070

== ENCOUNTER 2023-09-12 11:43 | Observation (INO) | payer MEDICARE ==
[~2023-09-12 11:43] MED LIST changes: -ACETAMINOPHEN TAB 500 MG TAB PO ONE; -DEXAMETHASONE SOD PHOSPHATE 10 MG/ML 1 ML VIAL IV ONE; +LIDOCAINE 1% (10MG/ML) FOR IV START INTRADERMA PRN; -MELOXICAM 7.5 MG TAB PO ONE; +MELOXICAM 7.5 MG TAB PO PRN; -MIDAZOLAM 2 MG/2 ML VIAL IV PRN; -MORPHINE SULFATE 4 MG/ML SYRINGE IV PRN; -ONDANSETRON 4 MG/2 ML VIAL IVP ONE; -ROPIVACAINE 246.25 MG, EPINEPHrine 0.5 MG, KETOROLAC 30 MG, cloNIDine HCL/PF 80 MCG, WA... MISCELLANE ONE; -SCOPOLAMINE 1.5MG/72HR PATCH TRANSDERM ONE; +TRANEXAMIC 1,000 MG/100ML-NACL 1,000 MG in SALINE 1 100ML.BAG IVPB PRN; -TRANEXAMIC ACID 1,000 MG in SODIUM CHLORIDE 0.9% 50 ML IVPB ONE; -ceFAZolin IN SWFI 2 GM/20 ML SYRINGE IVP ONE
[2023-09-12] MEDS: LACTATED RINGERS 1,000 ML IV SCH (12:15)
[2023-09-12] MEDS: GABAPENTIN 300 MG CAP PO PRN (12:31)
[2023-09-12] MEDS: ACETAMINOPHEN TAB 500 MG TAB PO PRN (12:31)
[2023-09-12] MEDS: ONDANSETRON 4 MG/2 ML VIAL IVP ONE (12:37)
[2023-09-12] MEDS: DEXAMETHASONE SOD PHOSPHATE 4 MG/ML 1 ML VIAL IVP ONE (12:40)
[2023-09-12] MEDS: MIDAZOLAM 2 MG/2 ML VIAL IVP ONE (12:41)
[2023-09-12] MEDS: fentaNYL (PF) 50 MCG/ML 2 ML AMP IVP ONE (12:42)
[2023-09-12] MEDS ORDERED: TRANEXAMIC 1,000 MG/100ML-NACL PREMIX BAG ONE (12:59)
[2023-09-12] MEDS ORDERED: SODIUM CHLORIDE 0.9% (PF) 10 ML VIAL ONE (12:59)
[2023-09-12] MEDS ORDERED: PROPOFOL 10 MG/ML 20 ML VIAL IV ONE (12:59)
[2023-09-12] MEDS ORDERED: ROPIVACAINE 5 MG/ML 30 ML VIAL ONE (12:59)
[2023-09-12] MEDS ORDERED: MIDAZOLAM 2 MG/2 ML VIAL ONE (12:59)
[2023-09-12] MEDS ORDERED: KETAMINE HCL IN 0.9 % NACL 50 MG/5 ML SYRINGE ONE (12:59)
[2023-09-12] MEDS ORDERED: fentaNYL (PF) 50 MCG/ML 2 ML AMP ONE (12:59)
[2023-09-12] MEDS ORDERED: bisacodyL 10 MG SUPP RECTAL PRN (13:00)
[2023-09-12] MEDS ORDERED: MAGNESIUM HYDROXIDE 2,400 MG/30 ML CUP PO PRN (13:00)
[2023-09-12] MEDS ORDERED: NALOXONE 0.4 MG/ML 1 ML VIAL IV PRN (13:00)
[2023-09-12] MEDS ORDERED: HYDROmorphone 0.5 MG/0.5 ML SYRINGE IVP PRN ×2 (13:00)
[2023-09-12] MEDS ORDERED: NA PHOS,M-B/NA PHOS,DI-BA 133 ML ENEMA RECTAL PRN (13:00)
[2023-09-12] MEDS: ceFAZolin 1,000 MG in SODIUM CHLORIDE 0.9% 1,000 ML IRRIGATION ONE (13:02)
--- NOTE | 2023-09-12 14:14 | P.OP ---
Date of Procedure: 09/12/23 Preoperative Diagnosis: Severe osteoarthritis of the left knee Postoperative Diagnosis: Severe osteoarthritis of the left knee Procedure(s) Performed: Left total knee arthroplasty Implants: [employer] Journey II CR Oxinium cruciate retaining femoral component size 4, left [employer] Journey nonporous tibial baseplate size 3, left [employer] Journey II, XLPE Deep Dished articular insert, size 15 mm, Size 3-4, left [employer] Journey Dilcia II resurfacing patellar component, oval, 32 mm All components were cemented using Palacos R bone cement The articulation is Oxinium on polyethylene Anesthesia: spinal Surgeon: Toby Nguyen Rn Discharge #1: Nona Almonte Estimated Blood Loss (ml): 30 Pathology: none sent Condition: stable Disposition: PACU Indications for Procedure: The patient's knee is end-stage, and conservative management has failed. The operation of knee replacement has been discussed at length in the office, as well as potential risks and complications. These are inclusive of, but not limited to: Infection, bleeding, scarring, discomfort, stiffness, blood vessel and nerve damage, need for further surgery, failure to relieve symptoms, persistence, recurrence, or worsening of problems, loosening, dislocation, wear, blood clot, pulmonary embolism, , gait dysfunction, stiffness, and other risks as discussed in the office. Patient elects to proceed and the consent for m has been signed. Operative Findings: The operative findings are consistent with severe osteoarthritis of the left knee Description of Procedure: The patient was seen in the preoperative area, the consent was reviewed and the operative site was marked with a skin marker. The patient verified the procedure and the operative site. An adductor canal pain catheter and an iPACK block were placed by anesthesia in the preoperative area. The patient was then brought to the operating room and positioned on the operating room table in the supine position. Preoperative antibiotics and a gram of tranexamic acid were given intravenously. A spinal anesthetic was administered by the anesthesia department. Care was taken to make sure that all pressure points were adequately padded. A tourniquet was placed on the upper thigh and the lower extremity was prepped with ChloraPrep and draped in usual sterile fashion. A universal time-out was then performed which confirmed the patient's name, surgical site, ALLERGIES, and consent. The lower extremity was then exsanguinated and tourniquet was inflated to 250 mmHg. A standard anterior midline approach to the knee was performed. The skin and subcutaneous tissue were sharply dissected down to the patellar tendon. A medial parapatellar arthrotomy was then performed. The knee was then extended, the patellar was everted, and the knee was flexed. The infra-patellar fat pad was removed in order to enhance exposure. The anterior horns of both menisci were excised, and a release was performed to the posterior medial aspect of the knee. On gross visual inspection, there was complete loss of articular cartilage in the medial and patellofemoral joint spaces. There was also signif icant cartilage damage in the lateral compartment. There were multiple periarticular osteophytes globally about the knee which were then removed with a Ronguer. The femoral canal was then opened with the 9.5 mm intramedullary drill. The 8 mm intramedullary henrique was then inserted into the femoral canal with the distal femoral cutting guide set for 5 of valgus. The distal femoral cutting block was then pinned in place. The intramedullary henrique was then removed, and the distal femur was then cut. The cutting block was then removed and the cut was checked for symmetry. The resected bone was then measured to confirm the appropriate distal femoral resection. Next, the sizing guide was then placed and set for 3 external rotation based off of the epicondylar axis and Yarnell's line. Pins were then placed and the drill holes, and the femur was sized with the sizing stylus. The pins were then removed, and the sizing guide was then removed. The spikes of the appropriate size femoral block was then placed into the predrilled holes, and malleted into place. Two 45 mm pins were then placed into the fixation holes on the cutting block. An tadeo wing was then used to ensure there would be no notching with the anterior cut. The anterior condyles were cut without notching. The anterior chord cut was then performed, followed by the posterior cut, posterior chamfer cut, and the ant erior chamfer cut. The collateral ligaments were protected during the entire process. The cutting block was then removed. Any remaining bone and osteophytes were removed from the femur with a Ronguer. Attention was then directed to the tibia. The remaining ACL was removed with a Ronguer, and the tibia was then gently subluxed forward with a large bent knee retractor. Any remaining menisci were excised. The posterior lateral corner was cauterized in order to coagulate the lateral geniculate artery. The extra medullary tibial cutting guide was then placed, set for the appropriate rotatio n, slope, and depth of resection. The proximal tibia cutting guide was then pinned in place. Proximal tibia was then cut and sized. A curved osteotome was then used to remove any posterior osteophytes from the distal femur. The femoral trial was placed. A narrow saw blade was then used to remove the anterior intracondylar femoral bone. The CR notch trial was then placed. The tibial trial was placed with the appropriate-sized insert. The knee was able to fully extend and flex to 130 and was stable throughout all range of motion. The knee was then extended and the patella was everted. Patella was then measured, and then using an osteotomy guide, the patella was cut at the appropriate level. The patellar component was sized. The patellar drill guide was placed and the patella was drilled. The patella trial was then placed. The knee was then taken through range of motion with the patella trial and the patella tracked normally using the no thumbs technique. The patella trial was then removed. The knee was then flexed and lug holes were drilled through the femoral trial and the femoral trial was then removed. The tibial was then re- exposed, and the tibial broach guide was then pinned in place after it was set for the appropriate rotation to allow for the most coverage without overhang. The tibia was then reamed and broached. The femoral canal was plugged with autologous bone. The cut surfaces of bone were then irrigated with pulsatile lavage. The knee was also irrigated with Irrisept solution. The components were then opened, the cement was mixed. Cement was placed on the backside of the femoral, tibial, and patellar components. Cement was then applied to the tibial surface and pressurized into the surface using finger pressurization technique. The tibial component was then applied and excess cement was removed after it was impacted securely noted to be flush with the cut surface. In similar fashion, the cement was applied to the cut femoral surface, pressurized and using finger pressurization the component was impacted in place. Excess cement was removed. The polyethylene spacer was then implanted and locked into position. Patellar component was then applied in a similar technique and the patellar clamp was used to hold patella in place while the cement hardened. The knee was held in full extension while the cement hardened. Once the cement had fully hardened, the knee was reinspected. Any other cement extrusion was removed the final range of motion testing showed range of motion from 0-130 with excellent stability, both medial and laterally and appropriate alignment of the leg. Patella tracked normally. After the cemented hardened, the tourniquet was released and hemostasis was obtained. A second gram of transexamic acid was given intravenously. The knee was again irrigated. The knee was again taken through range of motion and found to be stable throughout all range of motion of 0-130, and the patella tracked normally. The fascia was then closed with 0 Vicryl followed by #2 strata fix suture. The subcutaneous tissue was closed with 3-0 Vicryl and 3-0 strata fix. Exofin glue was used for the skin and placed with the knee in flexion. After the glue had dried, and Optafoam silver impregnated dressing was applied. A lightly compressive dressing was applied using web roll and Oscar wrap. Patient was then transferred to the stretcher and taken to recovery room in stable condition. Sponge and needle counts were correct. The junior sales assistant LISSETH Whitehead was required due the complexity surgery and the need for a skilled surgical instruments inspector. She assisted in positioning, draping, retraction, and closure of the wound.
[2023-09-12] MEDS ORDERED: ROPIVACAINE 0.75% 1,100 MG, SODIUM CHLORIDE 0.9% 500 ML 403 ML, EMPTY PAIN BALL 1 EACH MISCELLANE PRN (14:59)
--- NOTE | 2023-09-12 15:28 | XR ---
EXAMINATION TYPE: XR knee limited LT DATE OF EXAM: 09/12/2023 COMPARISON: NONE HISTORY: 73-year-old female evaluation for postoperative abnormality in alignment TECHNIQUE: 2 views FINDINGS: Images show placement of left total knee arthroplasty. Both distal femoral and proximal tib ial components of the prosthesis are well seated without periprosthetic fracture. Alignment grossly a natomic. Anterior soft tissue swelling with soft tissue air as well as intra-articular air related to recent operation. IMPRESSION: Uncomplicated postoperative appearance left total knee arthroplasty.
--- NOTE | 2023-09-12 16:16 | P.ANPRN ---
Procedure Note - Anesthesia - Nerve Block Performed Left iPack Single Time Out Performed: Yes (1241) Date of Procedure: 09/12/23 Procedure Start Time: 12:50 Procedure Stop Time: 12:53 Location of Patient: PreOp Indication: Acute Post-Operative Pain, Requested by Surgeon Specifically requested for management of pain by DrWhitney: Toby Nguyen Sedation Type: Sedate with meaningful contact maintained Preparation: Sterile Prep Position: Supine Catheter: None Needle Types: Pajunk Needle Gauge: 21 Ultrasound used to visualize needle placement: Yes Ultrasound used to observe medication spread: Yes Injectate: 0.5% Ropivacaine (see comment for volume) (15 cc +10 cc NaCl preservative-free) Blood Aspirated: No Pain Paresthesia on Injection Noted: No Resistance on Injection: Normal Image Stored and Saved: Yes Events: Uneventful and Well Tolerated
--- NOTE | 2023-09-12 16:16 | P.ANPRN ---
Procedure Note - Anesthesia - Nerve Block Performed Left Adductor Canal Infusion Time Out Performed: Yes (1241) Date of Procedure: 09/12/23 Procedure Start Time: 12:42 Procedure Stop Time: 12:49 Location of Patient: PreOp Indication: Acute Post-Operative Pain, Requested by Surgeon Specifically requested for management of pain by DrWhitney: Toby Nguyen Sedation Type: Sedate with meaningful contact maintained Preparation: Sterile Prep, Sterile Dressing Position: Supine Catheter Depth at Skin (cm): 7 Catheter: Indwelling Needle Types: Pajunk Needle Gauge: 18 Ultrasound used to visualize needle placement: Yes Ultrasound used to observe medication spread: Yes Injectate: 0.5% Ropivacaine (see comment for volume) (15cc +10cc nacl pf) Blood Aspirated: No Pain Paresthesia on Injection Noted: No Resistance on Injection: Normal Image Stored and Saved: Yes Events: Uneventful and Well Tolerated
[2023-09-12] MEDS: HYDROmorphone 0.5 MG/0.5 ML SYRINGE IVP PRN ×2 (17:21→19:09)
[2023-09-12] MEDS: SODIUM CHLORIDE 0.9% 1,000 ML IV SCH (19:00)
[2023-09-12] MEDS: ONDANSETRON 4 MG/2 ML VIAL IVP PRN (19:01)
[2023-09-12] MEDS: ASPIRIN 325 MG TAB PO SCH (22:03)
[2023-09-12] MEDS: SENNOSIDES-DOCUSATE SODIUM 1 EACH TAB PO SCH (22:03)
[2023-09-13] MEDS ORDERED: FLUTICASONE 110 MCG INHALER INHALATION PRN (02:09)
[2023-09-13] MEDS ORDERED: ALBUTEROL NEBULIZED 2.5 MG/3 ML INHALATION PRN (02:09)
[2023-09-13] MEDS: ACETAMINOPHEN TAB 325 MG TAB PO PRN (02:26)
[2023-09-13] MEDS: PANTOPRAZOLE 40 MG TABLET PO SCH (06:34)
[2023-09-13] MEDS: HYDROcodone/APAP 7.5-325MG 1 EACH TAB PO PRN (06:34)
--- NOTE | 2023-09-13 07:49 | P.PN ---
Progress Note - Text 09/13/22 723am 73-year-old female status post total knee replacement. Patient has an On-Q pump for postop pain control with a solution running at 80 cc an hour with a VAS 9. The pain is predominantly located posteriorly and she also has some tourniquet pain.. Plan to continue On-Q pump infusion
[2023-09-13] MEDS ORDERED: CHOLECALCIFEROL 25 MCG (1000 IU) TABLET PO SCH (09:00)
[2023-09-13] MEDS ORDERED: NON FORMULARY DRUG (Esomeprazole Magnesium [Nexium] 40 MG Capsule.Dr) PO SCH (09:00)
[2023-09-13] MEDS ORDERED: FOSTEUM PO SCH (09:00)
--- NOTE | 2023-09-13 10:20 | P.DS ---
Providers Expected date of discharge: 09/13/23 Attending physician: Toby Nguyen Consults: 09/12/23 13:00 Consult Physician Routine Consulting Provider: Melissa Giron Consult Reason/Comments: medical management Do you want consulting provider notified?: Yes Primary care physician: Issac Hamilton Kut - Discharge Diagnosis(es) (1) Osteoarthritis of left knee Current Visit: Yes Status: Acute (2) Status post total left knee replacement Current Visit: Yes Status: Acute Hospital Course: This is a 73-year-old female with known history of degenerative arthritis of the left knee. The patient presented for evaluation as an outpatient. After discussion and consideration patient elects to proceed with total knee arthroplasty. The patient is seen preoperatively by Dr. Nguyen and medically cleared for surgery by their primary care physician. Patient is admitted to [facility] on 09/12/2023 for total knee arthroplasty. The procedure is performed without complication or sequelae. The patient is doing well postoperatively. Labs and vital signs are stable on day of discharge. On day of discharge patient's knee incision is healing well. There is minimal erythema. There is no drainage noted at this time. There is minimal soft tissue swelling to the knee. Patient has full foot and ankle motion without difficulty or pain. Calf is soft and nontender to palpation. Neurovascular status to the left lower extremity is intact. Patient is discharged home in good condition. Please see med rec for accurate list of home medications. Plan - Discharge Summary Discharge Rx Participant: Yes New Discharge Prescriptions: New Aspirin 325 mg PO BID #60 tab HYDROcodone/APAP 7.5-325MG [[place] 7.5-325] 1 - 2 tab PO Q6H PRN #32 tab PRN Reason: Pain Sennosides [Senokot] 2 tab PO DAILY PRN #60 tablet PRN Reason: Constipation Ondansetron Odt [Zofran Odt] 1 tab PO Q8HR PRN #10 tab PRN Reason: Nausea No Action Fluticasone Nasal [place] [Flonase Nasal [place]] 2 spr EA NOSTRIL HS Albuterol Inhaler [Ventolin Hfa Inhaler] 2 puff INHALATION RT-Q6H PRN PRN Reason: Shortness Of Breath Cholecalciferol [Vitamin D3] 2,000 unit PO DAILY Esomeprazole Magnesium [NexIUM] 40 mg PO DAILY Escitalopram [Lexapro] 10 mg PO DAILY Montelukast [Singulair] 10 mg PO HS Beclomethasone Dipropionate [Qvar 80 mcg] 2 puff INHALATION RT-DAILY PRN PRN Reason: Shortness Of Breath Magnesium Chloride [Slow-Mag] 64 mg PO BID Rosuvastatin Calcium 20 mg PO HS Losartan Potassium 25 mg PO DAILY Unk Cranberry Supp 1 tab PO DAILY Fosteum 180 mg PO BID Cholecalciferol [Vitamin D3 (25 Mcg = 1000 Iu)] 75 mcg PO DAILY Unk Tumeric 1 tab PO DAILY Discharge Medication List Albuterol Inhaler [Ventolin Hfa Inhaler] 2 puff INHALATION RT-Q6H PRN 01/26/16 [History] Beclomethasone Dipropionate [Qvar 80 mcg] 2 puff INHALATION RT-DAILY PRN 01/26/16 [History] Cholecalciferol [Vitamin D3] 2,000 unit PO DAILY 01/26/16 [History] Escitalopram [Lexapro] 10 mg PO DAILY 01/26/16 [History] Esomeprazole Magnesium [NexIUM] 40 mg PO DAILY 01/26/16 [History] Fluticasone Nasal [place] [Flonase Nasal [place]] 2 spr EA NOSTRIL HS 01/26/16 [History] Montelukast [Singulair] 10 mg PO HS 01/26/16 [History] Unk Tumeric 1 tab PO DAILY 09/06/23 [History] Cholecalciferol [Vitamin D3 (25 Mcg = 1000 Iu)] 75 mcg PO DAILY 09/06/23 [History] Fosteum 180 mg PO BID 09/06/23 [History] Losartan Potassium 25 mg PO DAILY 09/06/23 [History] Magnesium Chloride [Slow-Mag] 64 mg PO BID 09/06/23 [History] Rosuvastatin Calcium 20 mg PO HS 09/06/23 [History] Unk Cranberry Supp 1 tab PO DAILY 09/06/23 [History] Aspirin 325 mg PO BID #60 tab 09/12/23 [Rx] HYDROcodone/APAP 7.5-325MG [[place] 7.5-325] 1 - 2 tab PO Q6H PRN #32 tab 09/12/23 [Rx] Sennosides [Senokot] 2 tab PO DAILY PRN #60 tablet 09/12/23 [Rx] Ondansetron Odt [Zofran Odt] 1 tab PO Q8HR PRN #10 tab 09/13/23 [Rx] Follow up Appointment(s)/Referral(s): [facility],Equipment [NON-STAFF] - As Needed (*Please call [facility] once home to arrange delivery to Continuous Passive Motion (CPM) machine. ) Toby Nguyen DO [Doctor of Osteopathic Medicine] - 09/20/23 1:30 pm (With Nona ) Activity/Diet/Wound Care/Special Instructions: Weightbearing as tolerated with a walker. CPM 5-6h daily as tolerated. Leave dressing intact. Dressing may be removed by home care nurse or by patient in 7 days. Then change dressing twice daily until follow up. May shower with initial dressing intact and after removal. If dressing become saturated, please remove. Recommend use of compression stockings daily until follow up to help prevent swelling and blood clots. May remove at night before sleeping. Please take aspirin 325mg twice daily for 30 days to prevent blood clots. Please follow up with [facility] and call with any questions or concerns, . Attend outpatient Physical Therapy at [facility] as scheduled prior to surgery. Discharge Disposition: HOME WITH HOME HEALTH SERVICES
[2023-09-13] MEDS: LOSARTAN 25 MG TAB PO SCH (10:24)
[2023-09-13] MEDS: MAGNESIUM OXIDE 400 MG TAB PO SCH (10:24)
[2023-09-13] MEDS: CHOLECALCIFEROL 125 MCG (5000 IU) TABLET PO SCH (10:24)
[2023-09-13] MEDS: ESCITALOPRAM 10 MG TAB PO SCH (10:26)
[2023-09-13 11:04] LABS: Basophils # (A) 0.02 X 10*3/uL (0.00-0.10); Basophils % (A) 0.2 %; Eosinophils # (A) 0 X 10*3/uL (0.04-0.35); Eosinophils % (A) 0 %; Lymphocytes # (A) 0.88 X 10*3/uL (0.90-5.00); Lymphocytes % (A) 7.5 %; MCH 29.8 pg (27.0-32.0); MCHC 31.4 g/dL (32.0-37.0); MCV 94.9 FL (80.0-97.0); Mean Platelet Volume 11.3 FL (9.5-12.2); Monocytes # (A) 0.75 X 10*3/uL (0.20-1.00); Monocytes % (A) 6.4 %; NRBC Per 100 WBC 0 X 10*3/uL (0.00-0.01); Neutrophils # (A) 10.02 X 10*3/uL (1.80-7.70); Neutrophils % (A) 85.6 %; Platelet Count 243 X 10*3/uL (140-440); RBC 3.69 X 10*6/uL (4.10-5.20); RDW 13.2 % (11.5-14.5); WBC 11.71 X 10*3/uL (4.50-10.00)
[2023-09-13] MEDS ORDERED: METOCLOPRAMIDE 5 MG/ML 2 ML VIAL IVP PRN (15:14)
[2023-09-13] MEDS ORDERED: METOCLOPRAMIDE 5 MG/ML 2 ML VIAL IVP SCH (18:00)
[2023-09-13] MEDS: ATORVASTATIN 40 MG TAB PO SCH (21:14)
[2023-09-13] MEDS: MONTELUKAST 10 MG TAB PO SCH (21:14)
[2023-09-13] MEDS: FLUTICASONE 50MCG/SPRAY NASAL 16GM EA NOSTRIL SCH (21:14)
[2023-09-14 02:56] VITALS: RESP 18
[2023-09-14] MEDS: ONDANSETRON 4 MG/2 ML VIAL IVP PRN (03:43)
--- NOTE | 2023-09-14 06:27 | P.CONS ---
History of Present Illness - Reason for Consult Consult date: 09/13/23 Medical management, status post left knee arthroplasty - History of Present Illness This is a pleasant 73-year-old female who was admitted under orthopedic services status post left total knee arthroplasty. Patient follows with Dr. Lake in the outpatient setting with a past medical history of asthma, GERD, hyperlipidemia, hypertension, osteoarthritis, anxiety. Patient reports she did go to her primary care provider's office for presurgical clearance. Patient reporting some increased nausea with movement and is continued on Zofran. Will add Reglan as needed. Encouraged small frequent meals and limiting the use of IV narcotics. Patient is afebrile with no reports of chest pain or shortness of breath. Patient is using incentive spirometer and encouraged the patient to continue using at least 10 times every hour while awake. Patient reports to passing gas and voiding but has not had a bowel movement yet. REVIEW OF SYSTEMS: CONSTITUTIONAL: No fever, no malaise, no fatigue. HEENT: No recent visual problems or hearing problems. Denied any sore throat. CARDIOVASCULAR: No chest pain, orthopnea, PND, no palpitations, no syncope. PULMONARY: No shortness of breath, no cough, no hemoptysis. GASTROINTESTINAL: No diarrhea, reports intermittent nausea, no vomiting, no abdominal pain. NEUROLOGICAL: No headaches, no weakness, no numbness. HEMATOLOGICAL: Denies any bleeding or petechiae. GENITOURINARY: Denies any burning micturition, frequency, or urgency. MUSCULOSKELETAL/RHEUMATOLOGICAL: Denies any joint pain, swelling, or any muscle pain. Reports left knee pain morbidly obese ENDOCRINE: Denies any polyuria or polydipsia. The rest of the 14-point review of systems is negative. PHYSICAL EXAMINATION: GENERAL: The patient is alert and oriented x3, not in any acute distress. Well developed, well nourished. HEENT: Pupils are round and equally reacting to light. EOMI. No scleral icterus. No conjunctival pallor. Normocephalic, atraumatic. No pharyngeal erythema. No thyromegaly. CARDIOVASCULAR: S1 and S2 present. No murmurs, rubs, or gallops. PULMONARY: Chest is clear to auscultation, no wheezing or crackles. ABDOMEN: Soft, obese, nontender, nondistended, normoactive bowel sounds. No palpable organomegaly. MUSCULOSKELETAL: No joint swelling or deformity. EXTREMITIES: No cyanosis, clubbing, or pedal edema. Left knee surgical dressing is dry and intact with some minimal bruising and mild swelling noted surrounding the site NEUROLOGICAL: Gross neurological examination did not reveal any focal deficits. Diffusely weak SKIN: No rashes. Assessment: Status post left knee total arthroplasty History of asthma, not in exacerbation Hypertension history Hyperlipidemia History of osteoarthritis History of anxiety Morbid obesity with a BMI of 41.1 GI prophylaxis DVT prophylaxis Full code Plan: Patient admitted under orthopedic services status post left total knee arthropl asty postop day 1 Patient with incentive spirometer at the bedside encouraged the patient to continue using at least 10 times every hour while awake Patient was able to work with physical therapy although continues with pain and having continued nausea recommend reevaluation again tomorrow Continue with Zofran and increase the dosing to every 6 hours and will add Reglan as needed as well. Recommend limiting IV narcotic use and continue with pain management per orthopedics Home medications reviewed and resumed as appropriate We will continue to follow with orthopedics during hospitalization. Thank you kindly for this consultation. The impression and plan of care has been dictated by Hortencia Oliveira, Nurse Practitioner as directed. Dr. Jamie MD I have performed a history and examination and MDM of this patient, discussed the same with the dictator, and agree with the dictator's assessment and plan as written ,documented as a scribe. Based on total visit time, I have performed more than 50% of the visit. Past Medical History Past Medical History: Asthma, GERD/Reflux, Hyperlipidemia, Hypertension, Osteoarthritis (OA) Additional Past Medical History / Comment(s): STATES HEART SKIPS A BEAT., ARTHRITIS ANURAG KNEES., VARICOSE VEINS. recent treated for dog bite on 08/22/23 History of Any Multi-Drug Resistant Organisms: None Reported Past Surgical History: Hysterectomy, Orthopedic Surgery, Tubal Ligation Additional Past Surgical History / Comment(s): rt shoulder rotator cuff, anurag bunionectomy and hammertoe, kidney stone removal, right total knee arthroplasty Past Anesthesia/Blood Transfusion Reactions: Postoperative Nausea & Vomiting (PONV) Past Psychological History: Anxiety Smoking Status: Never smoker Past Alcohol Use History: None Reported Past Drug Use History: None Reported - Past Family History Sister(s) Family Medical History: Cancer Additional Family Medical History / Comment(s): UTERINE CANCER Father Family Medical History: Cancer Additional Family Medical History / Comment(s): Father from liver cancer. Mother Additional Family Medical History / Comment(s): Mother from heart failure with history of Alzheimer's dementia. Son(s) Additional Family Medical History / Comment(s): no major medical problem. Medications and Allergies Home Medications Medication Instructions Recorded Confirmed Type Albuterol Inhaler [Ventolin Hfa 2 puff INHALATION RT-Q6H PRN 01/26/16 09/12/23 History Inhaler] Beclomethasone Dipropionate [Qvar 2 puff INHALATION RT-DAILY PRN 01/26/16 09/12/23 History 80 mcg] Cholecalciferol [Vitamin D3] 2,000 unit PO DAILY 01/26/16 09/12/23 History Escitalopram [Lexapro] 10 mg PO DAILY 01/26/16 09/12/23 History Esomeprazole Magnesium [NexIUM] 40 mg PO DAILY 01/26/16 09/12/23 History Fluticasone Nasal [place] [Flonase 2 spr EA NOSTRIL HS 01/26/16 09/12/23 History Nasal [place]] Montelukast [Singulair] 10 mg PO HS 01/26/16 09/12/23 History Unk Tumeric 1 tab PO DAILY 09/06/23 09/12/23 History Cholecalciferol [Vitamin D3 (25 75 mcg PO DAILY 09/06/23 09/12/23 History Mcg = 1000 Iu)] Fosteum 180 mg PO BID 09/06/23 09/12/23 History Losartan Potassium 25 mg PO DAILY 09/06/23 09/12/23 History Magnesium Chloride [Slow-Mag] 64 mg PO BID 09/06/23 09/12/23 History Rosuvastatin Calcium 20 mg PO HS 09/06/23 09/12/23 History Unk Cranberry Supp 1 tab PO DAILY 09/06/23 09/12/23 History Aspirin 325 mg PO BID #60 tab 09/12/23 Rx HYDROcodone/APAP 7.5-325MG [[place] 1 - 2 tab PO Q6H PRN #32 tab 09/12/23 Rx 7.5-325] Sennosides [Senokot] 2 tab PO DAILY PRN #60 tablet 09/12/23 Rx Ondansetron Odt [Zofran Odt] 1 tab PO Q8HR PRN #10 tab 09/13/23 Rx Allergies Allergy/AdvReac Type Severity Reaction Status Date / Time NSAIDS (Non-Steroidal Allergy Swelling Verified 09/12/23 12:07 Anti-Inflamma Physical Exam Vitals: Vital Signs Temp Pulse Pulse Pulse Resp BP BP 09/13/23 08:00 97.4 F L 65 124/72 09/13/23 02:00 97.5 F L 74 16 154/82 09/12/23 20:00 97.9 F 68 16 145/76 09/12/23 18:00 69 16 137/60 09/12/23 17:30 65 16 150/67 09/12/23 17:15 69 16 143/67 09/12/23 17:01 70 16 128/72 09/12/23 16:30 72 16 131/72 09/12/23 16:15 70 14 138/57 09/12/23 16:00 68 16 135/64 09/12/23 15:46 65 16 145/65 09/12/23 15:31 64 16 143/65 09/12/23 15:15 65 16 152/65 09/12/23 15:00 65 16 130/60 09/12/23 14:43 97.2 F L 77 16 128/60 09/12/23 12:59 77 18 168/71 09/12/23 12:20 97.2 F L 70 18 177/81 Pulse Ox 09/13/23 08:00 93 L 09/13/23 02:00 90 L 09/12/23 20:00 94 L 09/12/23 18:00 99 09/12/23 17:30 99 09/12/23 17:15 99 09/12/23 17:01 99 09/12/23 16:30 99 09/12/23 16:15 99 09/12/23 16:00 98 09/12/23 15:46 98 09/12/23 15:31 98 09/12/23 15:15 98 09/12/23 15:00 98 09/12/23 14:43 94 L 09/12/23 12:59 99 09/12/23 12:20 99 Intake and Output 09/12/23 09/13/23 09/13/23 22:59 06:59 14:59 Intake Total 0 180 Balance 0 180 Intake: IV 0 Oral 180 Other: Voiding Method Toilet Toilet # Voids 1 1 Weight 101.9 kg Results CBC & Chem 7: 09/13/23 08:18
[2023-09-14 07:53] VITALS: BP 141/74; PULSE 94; TEMP 98.9
--- NOTE | 2023-09-16 20:05 | P.PN ---
Subjective Progress Note Date: 09/14/23 - Reason for Consult Consult date: 09/13/23 Medical management, status post left knee arthroplasty - History of Present Illness This is a pleasant 73-year-old female who was admitted under orthopedic services status post left total knee arthroplasty. Patient follows with Dr. Lake in the outpatient setting with a past medical history of asthma, GERD, hyperlipidemia, hypertension, osteoarthritis, anxiety. Patient reports she did go to her primary care provider's office for presurgical clearance. Patient reporting some increased nausea with movement and is continued on Zofran. Will add Reglan as needed. Encouraged small frequent meals and limiting the use of IV narcotics. Patient is afebrile with no reports of chest pain or shortness of breath. Patient is using incentive spirometer and encouraged the patient to continue using at least 10 times every hour while awake. Patient reports to passing gas and voiding but has not had a bowel movement yet. 09/14/2023 Patient is seen in follow-up this morning status post left total knee arthroplasty. Patient reports feeling improved and less nauseated today. Patient plans on returning home. Patient is afebrile with no reported chest pain or shortness of breath. Patient is tolerating diet with no reported nausea or vomiting today. Review of systems: Constitutional: No reports of fatigue, fever, or chills Cardiovascular: No reports of chest pain or palpitations Respiratory: No reports of shortness of breath or cough GI: No reports of nausea, vomiting, or diarrhea : No reports of dysuria or retention Neurovascular: reports of generalized weakness, reports some left knee pain All medications have been reviewed PHYSICAL EXAMINATION: GENERAL: The patient is alert and oriented x3, not in any acute distress. Well developed, well nourished. Morbidly obese HEENT: Pupils are round and equally reacting to light. EOMI. No scleral icterus. No conjunctival pallor. Normocephalic, atraumatic. No pharyngeal erythema. No thyromegaly. CARDIOVASCULAR: S1 and S2 present. No murmurs, rubs, or gallops. PULMONARY: Chest is clear to auscultation, no wheezing or crackles. ABDOMEN: Soft, obese, nontender, nondistended, normoactive bowel sounds. No palpable organomegaly. MUSCULOSKELETAL: No joint swelling or deformity. EXTREMITIES: No cyanosis, clubbing, or pedal edema. Left knee surgical dressing is dry and intact with some minimal bruising and mild swelling noted surrounding the site NEUROLOGICAL: Gross neurological examination did not reveal any focal deficits. Diffusely weak SKIN: No rashes. Assessment: Status post left knee total arthroplasty History of asthma, not in exacerbation Hypertension history Hyperlipidemia History of osteoarthritis History of anxiety Morbid obesity with a BMI of 41.1 GI prophylaxis DVT prophylaxis Full code Plan: Patient admitted under orthopedic services status post left total knee arthroplasty postop day 2 Patient with incentive spirometer at the bedside encouraged the patient to continue using at least 10 times every hour while awake Patient was able to work with physical therapy again today with some impr ovements Continue with antinausea medication as needed. Patient reports improvement in nausea symptoms Recommend limiting IV narcotic use and continue with pain management per orthopedics Home medications reviewed and resumed as appropriate Patient plans on going home today. We will continue to follow with orthopedics during hospitalization. Thank you kindly for this consultation. The impression and plan of care has been dictated by Hortencia Oliveira, Nurse Practitioner as directed. Dr. Jamie MD I have performed a history and examination and MDM of this patient, discussed the same with the dictator, and agree with the dictator's assessment and plan as written ,documented as a scribe. Based on total visit time, I have performed more than 50% of the visit. Objective - Vital Signs Vital signs: Vital Signs Temp 98.9 F 09/14/23 06:59 Pulse 94 09/14/23 06:59 Resp 18 09/14/23 06:59 BP 141/74 09/14/23 06:59 Pulse Ox 91 L 09/14/23 06:59 FiO2 Intake & Output 09/13/23 09/14/23 09/14/23 18:59 06:59 18:59 Intake Total 280 Balance 280 Intake: Oral 280 Other: Voiding Method Toilet # Voids 2 3 - Labs CBC & Chem 7: 09/13/23 08:18 Labs: Abnormal Lab Results - Last 24 Hours (Table) 09/13/23 Range/Units 08:18 WBC 11.71 H (4.50-10.00) X 10*3/uL RBC 3.69 L (4.10-5.20) X 10*6/uL Hgb 11.0 L (12.0-15.0) g/dL Hct 35.0 L (37.2-46.3) % MCHC 31.4 L (32.0-37.0) g/dL Neutrophils # 10.02 H (1.80-7.70) X 10*3/uL Lymphocytes # 0.88 L (0.90-5.00) X 10*3/uL Eosinophils # 0 L (0.04-0.35) X 10*3/uL
== END 2023-09-14 14:55 | disposition home health service (06) ==
LOC: OR 11:43 → 4SSUR 11:44
PROVIDERS: ADMIT Orthopaedic Surgery; ATTEND Orthopaedic Surgery
DX: M17.12 Unilateral primary osteoarthritis, left knee (principal); R11.0 Nausea; J45.909 Unspecified asthma, uncomplicated; K21.9 Gastro-esophageal reflux disease without esophagitis; E78.5 Hyperlipidemia, unspecified; I10 Essential (primary) hypertension; F41.9 Anxiety disorder, unspecified; E66.01 Morbid (severe) obesity due to excess calories; Z68.41 Body mass index [BMI] 40.0-44.9, adult; M19.90 Unspecified osteoarthritis, unspecified site; Z79.899 Other long term (current) drug therapy; Z79.82 Long term (current) use of aspirin; Z88.8 Allergy status to other drugs, medicaments and biological substances; Z80.49 Family history of malignant neoplasm of other genital organs; Z80.0 Family history of malignant neoplasm of digestive organs; Z82.0 Family history of epilepsy and other diseases of the nervous system; Z82.49 Family history of ischemic heart disease and other diseases of the circulatory system
CPT/HCPCS: 97530; 97161; 64999; 64448; 85025; 73560; 27447; G0378 ×2; C1713; C1776; C1751; J2250; J1100; J0690 ×3; J2405 ×3; J3010; J1170 ×3

== ENCOUNTER → 2023-11-15 | Outpatient (CLI) | payer MEDICARE ==
--- NOTE | 2023-11-17 10:14 | MM ---
Reason for Exam: Screening (asymptomatic). Last mammogram was performed 1 year(s) and 1 month(s) ago. Patient History: Menarche at age 12. First Full-Term at age 17. Hysterectomy at age 20. Postmenopausal. Risk Values: Christina 5 year model risk: 1.3%. NCI Lifetime model risk: 3.0%. Prior Study Comparison: 08/10/2020 Screening Mammogram, [facility]. 10/01/2021 Bilateral Screening Mammogram, [facility]. 10/03/2022 Bilateral MG 3D screening mammo w/cad, [facility]. Tissue Density: The breasts are heterogeneously dense, which may obscure small masses. Findings: Analyzed By CAD. There is no suspicious group of microcalcifications or new suspicious mass in either breast. Overall Assessment: Benign, BI-RAD 2 Management: Screening Mammogram of both breasts in 1 year. . Patient should continue monthly self-breast exams. A clinical breast exam by your physician is recommended on an annual basis. This exam should not preclude additional follow-up of suspicious palpable abnormalities. Note on Christina scores and lifetime risk: 1. A Christina score greater than 3% is considered moderate risk. If this is the case, consider specialist referral to assess eligibility for a risk reducing agent. 2. If overall lifetime risk for the development of breast cancer is 20% or higher, the patient may qualify for future screening with alternating mammogram and breast MRI. Electronically signed and approved by: Eamon Mariscal M.D. Radiologis
== END | disposition home or self-care (01) ==
LOC: RADMAMWWP 08:52
PROVIDERS: ATTEND Family Medicine
DX: Z12.31 Encounter for screening mammogram for malignant neoplasm of breast (principal); Z78.0 Asymptomatic menopausal state
CPT/HCPCS: 77063; 77067